=== PATIENT | female | born 1995 | race Caucasian/White ===

== ENCOUNTER 2022-08-16 19:18 | Emergency (ER) | payer BC, OTHER ==
[2022-08-16] MEDS ORDERED: diphenhydrAMINE INJ 50 MG/ML VIAL IVP STA (19:35)
[2022-08-16] MEDS ORDERED: FAMOTIDINE 20 MG/2 ML VIAL IVP STA (19:35)
[2022-08-16] MEDS ORDERED: methylPREDNISolone SUCCINATE 125 MG/2 ML VIAL IVP STA (19:37)
--- NOTE | 2022-08-16 19:39 | ED Physician Documentation ---
History of Present Illness - Stated complaint Stated Complaint: ALLERGIC REACTION - Chief complaint Chief Complaint: Allergic Rx - Additonal information Additional information: 27-year-old female presents emergency department for evaluation of acute allergic reaction after eating vegetable burger that contained pea proteins. 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 She tries to avoid it but did not realize a veggie burger had this. Since then she is had some mild lip swelling but no tongue swelling. No difficulty breathing but has a very bad sore throat and stomach upset. No vomiting. Review of Systems Constitutional: denies: Fever, Chills Throat: reports: Sore throat Respiratory: denies: Dyspnea, Cough GI: reports: Reviewed and negative : reports: Reviewed and negative Skin: reports: Reviewed and negative Musculoskeletal: reports: Reviewed and negative PD PAST MEDICAL HISTORY - Present Medications Home Medications: Ambulatory Orders Medication Instructions Recorded Confirmed EPINEPHrine [Epinephrine] 0.3 mg IJ ONCE PRN #1 each 08/16/22 Famotidine [Pepcid] 20 mg PO BID #60 tablet 08/16/22 diphenhydrAMINE [Benadryl] 25 mg PO BID #6 cap 08/16/22 predniSONE [Deltasone] 40 mg PO DAILY 5 Days #6 tablet 08/16/22 - Allergies Allergies/Adverse Reactions: Allergies Allergy/AdvReac Type Severity Reaction Status Date / Time amoxicillin Allergy Rash Verified 08/16/22 19:22 PD ED PE NORMAL - General General: Alert and oriented X 3. No: No acute distress (Crying and tearful) - HEENT HEENT: No: Pharynx benign (Unremarkable posterior oropharynx without uvula edema. No tongue or lip swelling. Normal phonation. 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 Eye Opening: Spontaneous Motor: Obeys Commands Verbal: Oriented GCS Score: 15 Results - Vitals Vitals: Vital Signs - 24 hr 08/16/22 08/16/22 08/16/22 19:22 20:21 20:49 Temperature 36.5 C Heart Rate 124 H 75 77 Respiratory 24 18 18 Rate Blood Pressure 160/100 H 132/82 H 117/81 H O2 Saturation 100 100 98 Oxygen O2 Source Room air PD Medical Decision Making - ED course Complexity details: reviewed results, re-evaluated patient, considered differential, d/w patient ED course: 27-year-old female presents emergency department for evaluation of allergic reaction after she ate a vegetable barron that had pea protein. She began to immediately develop tightness in her throat and pain in her stomach. However on presentation she had no evidence of tongue or lip swelling. No posterior oropharynx swelling. She had normal phonation and swallow. No evidence of anaphylaxis or cardiovascular compromise I initially administered 50 mg of Benadryl, methylprednisolone 125 mg IV as well as Pepcid 40 mg IV. On reevaluation she was markedly improved. She was monitored here in the emergency department for 90 minutes with no return of the symptoms and felt ready for discharge home. She will be discharged with prescription for an additional 3 days of prednisone and the recommendation to use Benadryl and Pepcid as well. I have written a prescription for an epinephrine pen though it was not necessary to use that today. She is advised to read food labels more carefully. The usual emergent return precautions were discussed for worsening symptoms. Departure - Departure Disposition: Home, Self Care Clinical Impression: Allergic reaction Qualifiers: Encounter type: initial encounter Qualified Code(s): T78.40XA - Allergy, unspecified, initial encounter Condition: Stable Record reviewed to determine appropriate education?: Yes Prescriptions: diphenhydrAMINE [Benadryl] 25 mg PO BID #6 cap predniSONE [Deltasone] 40 mg PO DAILY 5 Days #6 tablet EPINEPHrine [Epinephrine] 0.3 mg IJ ONCE PRN #1 each PRN Reason: Anaphylaxis Famotidine [Pepcid] 20 mg PO BID #60 tablet Comments: You are seen today because you developed some throat tightness and stomach upset after eating a veggie burger that contained pea protein. The emergency department we gave you Benadryl, Pepcid methylprednisolone a steroid with marked improvement in your symptoms. For the next several days I would like you to take Benadryl 25 mg twice daily as well as Pepcid 20 mg twice daily. You will take the prednisone for the next 3 days. I am also writing a refill of your EpiPen. The return to the ER at any point should you feel return of symptoms, difficulty breathing inability to swallow or severe chest pain.
[2022-08-16 20:51] VITALS: BP 117/81
== END 2022-08-16 21:05 | disposition home or self-care (01) ==
LOC: ED 19:18
DX: T78.1XXA Other adverse food reactions, not elsewhere classified, initial encounter (principal); R22.0 Localized swelling, mass and lump, head
CPT/HCPCS: 36415; 96374; 96375; 99283; 99284; J1200